=== PATIENT | female | born 1965 | race Caucasian/White ===

== ENCOUNTER 2018-03-24 11:11 | Emergency (ER) | payer OTHER ==
[~2018-03-24] VITALS: Ht 157.5 cm; Wt 72.6 kg
[2018-03-24 11:16] VITALS: BP 139/80
[2018-03-24] MEDS ORDERED: IBUPROFEN 600 MG TABLET PO ONE ×2 (11:21→11:30)
--- NOTE | 2018-03-24 11:34 | NUR ---
XRAY AT BS
== END 2018-03-24 12:58 | disposition home or self-care (01) ==
LOC: ER 11:17
DX: S82.832A Other fracture of upper and lower end of left fibula, initial encounter for closed fracture (principal); W01.0XXA Fall on same level from slipping, tripping and stumbling without subsequent striking against object, initial encounter; Y93.01 Activity, walking, marching and hiking; Y92.511 Restaurant or cafe as the place of occurrence of the external cause; Y99.8 Other external cause status
CPT/HCPCS: 29515; 73610; 73630; 99284; A4606; Z7610